=== PATIENT | male | born 1945 | race Caucasian/White ===

== ENCOUNTER 2016-12-22 09:04 | Emergency (ER) | payer MEDICARE, BC ==
[2016-12-22 10:26] LABS: ABSOLUTE EOSINOPHILS # (AUTO) 0.1 10^3/uL (0.0-0.6); ABSOLUTE LYMPHOCYTES (AUTO) 1.7 10^3/uL (0.5-4.7); ABSOLUTE MONOCYTES (AUTO) 0.6 10^3/uL (0.1-1.4); ABSOLUTE NEUT (AUTO) 3.2 10^3/uL (1.7-8.2); BASOPHILS % (AUTO) 0.5 % (0-2); EOSINOPHILS % (AUTO) 2.1 % (0-6); HEMATOCRIT 43.3 % (37.9-51.0); HEMOGLOBIN 14.1 g/dL (13.5-17.0); LYMPHOCYTES % (AUTO) 29.7 % (13-45); MEAN CORPUSCULAR HEMOGLOBIN 29.7 pg (27.0-33.4); MEAN CORPUSCULAR HGB CONC 32.6 g/dL (32.0-36.0); MEAN CORPUSCULAR VOLUME 91 fl (80-97); MONOCYTES % (AUTO) 10.8 % (3-13); RED BLOOD COUNT 4.76 10^6/uL (4.35-5.55); SEGMENTED NEUTROPHILS % (AUTO) 56.9 % (42-78); WHITE BLOOD COUNT 5.6 10^3/uL (4.0-10.5)
--- NOTE | 2016-12-22 10:30 | ER Document Report ---
ED General <SEBASTIAN CHAMBERS - Last Filed: 12/22/16 10:57> - General Mode of Arrival: Ambulatory Information source: Patient TRAVEL OUTSIDE OF THE [place] IN LAST 30 DAYS: No - HPI Patient complains to provider of: High Potassium Associated symptoms: None <MARLON HASKINS - Last Filed: 12/25/16 13:57> - General Chief Complaint: Abnormal Lab Results Stated Complaint: POTASSIUM CHEAK Notes: Patient is a 71-year-old male presenting to the emergency department after his doctor's office called to report a high potassium level of 7.1. Patient had his labs checked at his routine 6 month appointment. Patient states that he has been eating quite a few bananas recently, and he does not have any symptoms. 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 (MARLON HASKINS) - Related Data Allergies/Adverse Reactions: No Known Allergies Allergy (Verified 12/22/16 09:24) Past Medical History - General Information source: Patient - Social History Smoking Status: Former Smoker - Quit 1986 Chew tobacco use (# tins/day): No Frequency of alcohol use: None Drug Abuse: None Lives with: Spouse/Significant other Family History: Reviewed & Not Pertinent Patient has suicidal ideation: No Patient has homicidal ideation: No - Past Medical History Cardiac Medical History: Reports: Hx Hypercholesterolemia Renal/ Medical History: Reports: Hx Benign Prostatic Hyperplasia Surgical Hx: Negative - Immunizations Hx Diphtheria, Pertussis, Tetanus Vaccination: Yes <MARLON HASKINS - Last Filed: 12/25/16 13:57> Review of Systems - Review of Systems Constitutional: No symptoms reported EENT: No symptoms reported Cardiovascular: No symptoms reported Respiratory: No symptoms reported Gastrointestinal: No symptoms reported Genitourinary: No symptoms reported Male Genitourinary: No symptoms reported Musculoskeletal: No symptoms reported Skin: No symptoms reported Hematologic/Lymphatic: No symptoms reported Neurological/Psychological: No symptoms reported -: Yes All other systems reviewed and negative <MARLON HASKINS - Last Filed: 12/25/16 13:57> Physical Exam - General General appearance: Appears well, Alert - HEENT Head: Normocephalic, Atraumatic Eyes: Normal Pupils: PERRL - Respiratory Respiratory status: No respiratory distress Chest status: Nontender Breath sounds: Normal Chest palpation: Normal - Cardiovascular Rhythm: Regular Heart sounds: Normal auscultation Murmur: No - Abdominal Inspection: Normal Distension: No distension Bowel sounds: Normal Tenderness: Nontender Organomegaly: No organomegaly - Back Back: Normal, Nontender - Extremities General upper extremity: Nontender, Normal color, Normal ROM, Normal temperature General lower extremity: Normal inspection, Nontender, Normal color, Normal ROM , Normal temperature, Normal weight bearing Hand: Other - Essential tremor - Neurological Neuro grossly intact: Yes Cognition: Normal Orientation: AAOx4 [place] Coma Scale Eye Opening: Spontaneous [place] Coma Scale Verbal: Oriented [place] Coma Scale Motor: Obeys Commands Alfred Coma Scale Total: 15 Speech: Normal - Psychological Associated symptoms: Normal affect, Normal mood - Skin Skin Temperature: Warm Skin Moisture: Dry Skin Color: Normal <MARLON HASKINS - Last Filed: 12/25/16 13:57> - Vital signs Vitals: Temp Pulse Resp BP Pulse Ox 98.0 F 78 18 147/73 H 96 12/22/16 09:21 12/22/16 09:21 12/22/16 09:21 12/22/16 09:21 12/22/16 09:21 (SEBASTIAN CHAMBERS) (MARLON HASKINS) Course - Laboratory Result Diagrams: 12/22/16 10:05 12/22/16 10:05 - EKG Interpretation by [facility] EKG shows normal: Sinus rhythm, Intervals, QRS Complexes. abnormal: [place], ST-T Waves - Borderline T abnormalities noted anterolateral leads Rhythm: APC's [place]/QRS: Left axis deviation, LAHB/LAFB When compared to previous EKG there are: Previous EKG unavailable <SEBASTIAN CHAMBERS - Last Filed: 12/22/16 10:57> - Laboratory Result Diagrams: 12/22/16 10:05 12/22/16 10:05 <MARLON HASKINS - Last Filed: 12/25/16 13:57> - Re-evaluation Re-evalutation: 12/22/16 10:50 Potassium level was 4.2 today. He will be advised to limit his daily banana intake to 1 every few days. (SEBASTIAN CHAMBERS) - Vital Signs Vital signs: Temp Pulse Resp BP Pulse Ox 97.4 F 79 15 113/92 H 97 12/22/16 11:00 12/22/16 09:24 12/22/16 11:00 12/22/16 11:00 12/22/16 11:00 (SEBASTIAN CHAMBERS) (MARLON HASKINS) - Laboratory Laboratory results interpreted by me: 12/22/16 10:05 Glucose 111 H (SEBASTIAN CHAMBERS) Discharge <SEBASTIAN CHAMBERS - Last Filed: 12/22/16 10:57> <MARLON HASKINS - Last Filed: 12/25/16 13:57> - Discharge Clinical Impression: Hyperkalemia resolved, Abnormal blood chemistry test Condition: Stable Disposition: HOME, SELF-CARE Additional Instructions: Your potassium level today is 4.2 That is a normal potassium level. Your elevated potassium level II days ago was probably due to the bananas your eating. You should limit your consumption of bananas to no more than one every few days. Provide your doctor with a copy of your lab work from today. Referrals: JOSÉ MANUEL SAWYER MD [Primary Care Provider] - Follow up as needed Scribe Attestation: 12/22/16 10:53 I personally performed the services described in the documentation, reviewed and edited the documentation which was dictated to the scribe in my presence, and it accurately records my words and actions. (SEBASTIAN CHAMBERS) Scribe Documentation - Scribe Written by Katelin:: Marlon Haskins 12/22/2016 1025 acting as scribe for :: Casi <MARLON HASKINS - Last Filed: 12/25/16 13:57>
[2016-12-22 10:39] LABS: ALANINE AMINOTRANSFERASE 33 U/L (21-72); ALBUMIN 4.2 g/dL (3.5-5.0); ALKALINE PHOSPHATASE 95 U/L (38-126); ANION GAP 12 (5-19); ASPARTATE AMINO TRANSFERASE 24 U/L (17-59); BILIRUBIN,TOTAL 0.5 mg/dL (0.2-1.3); BLOOD UREA NITROGEN 12 mg/dL (7-20); CALCIUM 9.3 mg/dL (8.4-10.2); CARBON DIOXIDE 28 mmol/L (22-30); CHLORIDE 102 mmol/L (98-107); CREATININE RESULT 0.92 mg/dL (0.52-1.25); GLUCOSE 111 mg/dL (75-110); POTASSIUM 4.2 mmol/L (3.6-5.0); SODIUM 142.4 mmol/L (137-145)
[2016-12-22 11:05] VITALS: BP 113/92
--- NOTE | 2016-12-22 12:45 | EKG REPORT ---
SEVERITY:- ABNORMAL ECG - SINUS RHYTHM MULTIPLE ATRIAL PREMATURE COMPLEXES LAD, CONSIDER LEFT ANTERIOR FASCICULAR BLOCK BORDERLINE T ABNORMALITIES, ANT-LAT LEADS : Confirmed by: Melly Streeter MD 22-Dec-2016 12:44:22
== END 2016-12-22 11:07 | disposition home or self-care (01) ==
LOC: ER 09:04 → EDBD 09:04 → ER 11:07
DX: E87.5 Hyperkalemia (principal); E78.00 Pure hypercholesterolemia, unspecified; Z87.891 Personal history of nicotine dependence
CPT/HCPCS: 36415; 80053; 85025; 93005; 93010; 99283